=== PATIENT | male | born 1995 | race African-American/Black ===

== ENCOUNTER 2017-10-10 22:39 | Inpatient (IN) | payer SELFPAY ==
[2017-10-11] MEDS ORDERED: Ondansetron HCl/PF 4 MG/2 ML Vial IVP PRN (03:04)
[2017-10-11] MEDS ORDERED: Lorazepam 2 MG/ML VIAL SLOW IVP PRN (03:04)
[2017-10-11] MEDS ORDERED: Calcium Carbonate 500 MG ChewTAB PO PRN (03:04)
[2017-10-11] MEDS ORDERED: HYDROcodone/Acetaminophen 5/325 mg Tablet PO PRN (03:04)
[2017-10-11] MEDS ORDERED: hydrALAZINE 20 MG/ML VIAL SLOW IVP PRN (03:04)
[2017-10-11 03:46] LABS: Bilirubin Negative (Negative); Blood, Urine Large (Negative); Glucose, Urine (Dipstick) Negative (Negative); Ketone, Urine Negative (Negative); Nitrite Negative (Negative); Protein, Urine (Dipstick) 30 mg/dL (Neg-Trace); Urobilinogen 0.2 mg/dL (0.2-1.0)
[2017-10-11 03:49] LABS: Bacteria/HPF None Seen HPF (None Seen); Hyaline Casts/LPF 0-3 HYALINE CAST LPF (0-3 Hyaline); RBC/HPF GREATER THAN 50-TNTC HPF (0-3); Squamous Epithelial 0-3 HPF (0-3)
[2017-10-11] MEDS: Sodium Chloride 0.9% 1,000 ML IV SCH ×2 (03:54→16:37)
[2017-10-11] MEDS: Nicotine 21 MG PATCH TD SCH (03:56)
[2017-10-11 04:07] VITALS: BMI 23.9
[2017-10-11 04:07] LABS: Amphetamine Not Detected (NotDetected); Methadone Not Detected (NotDetected); Methamphetamine Not Detected (NotDetected)
[2017-10-11 06:15] LABS: #Eosinphils 0.1 thou/uL (0.0-0.7); #Lymphocytes 2.6 thou/uL (1.20-3.40); #Monocytes 0.7 thou/uL (0.11-0.59); %Basophils 0.4 % (0.0-1.0); %Eosinophils 1.3 % (0.0-10.0); %Monocytes 6.5 % (0.0-4.0); Hematocrit 42.6 % (42.0-52.0); Mean Platelet Volume 5.8 fL (7.4-10.4); Red Blood Cell (RBC) Count 4.63 mill/uL (4.00-5.20); White Blood Cell (WBC) Count 10.4 thou/uL (4.8-10.8)
[2017-10-11 06:20] LABS: ALT (SGPT) 12 U/L (8-55); AST (SGOT) 14 U/L (5-34); Alkaline Phosphatase 61 U/L (Less than 750); Anion Gap 13 mmol/L (10-20); BUN (Urea Nitrogen) 12 mg/dL (8.9-20.6); Bilirubin, Total 1.7 mg/dL (0.2-1.2); Calc. Creatinine Clearance 119 mL/min (70-130); Calcium 8.9 mg/dL (7.8-10.44); Carbon Dioxide 22 mmol/L (22-29); Chloride 108 mmol/L (98-107); Estimated GFR-MDRD Greater than 90; Globulin 2.8 g/dL (2.4-3.5); Magnesium 2.1 mg/dL (1.7-2.2); Protein, Total 6.6 g/dL (6.0-8.3)
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
[2017-10-11] MEDS: Acetaminophen 325 MG TAB PO PRN ×2 (08:48→14:55)
[2017-10-11] MEDS: Famotidine 20 MG TAB PO SCH ×2 (08:48→20:54)
[2017-10-11] MEDS ORDERED: FLU VACC QS2017-18 36 mo. & older 0.5 ML SYRINGE IM ONE (09:00)
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
[2017-10-11] MEDS ORDERED: cefTRIAXone\\ROCEPHIN 1 GM in Sodium Chloride 0.9% 100 ML IVPB SCH (15:00)
[2017-10-11] MEDS ORDERED: Gadobenate Dimeglumine 529 MG/1 ML (20ML VIAL) ONE (15:49)
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
[2017-10-11] MEDS: cefTRIAXone\\ROCEPHIN 1 GM, Syringe 0.4 ML in Sterile Water 9.6 ML SLOW IVP SCH (17:21)
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
[2017-10-12] MEDS: Nicotine 21 MG PATCH TD SCH (05:18)
[2017-10-12] MEDS: Acetaminophen 325 MG TAB PO PRN ×2 (05:20→12:40)
[2017-10-12] MEDS: Sodium Chloride 0.9% 1,000 ML IV SCH ×2 (06:36→22:19)
[2017-10-12] MEDS: Famotidine 20 MG TAB PO SCH ×2 (09:17→21:01)
--- NOTE | 2017-10-12 11:44 | PDOC.PN ---
- Subjective Encounter Start Date: 10/12/17 Encounter Start Time: 08:20 Pt seen for followup re: seizure. Denies chest pain, reports occipital headache. No nausea or vomiting. - Objective MAR Reviewed: Yes Vital Signs & Weight: Vital Signs (12 hours) Temp Pulse Resp BP Pulse Ox 10/12/17 08:00 97.9 F 67 18 121/59 L 99 10/12/17 07:37 97.9 F 67 18 10/12/17 03:45 97.4 F L 66 20 118/59 L 96 Weight Weight 144 lb 6.444 oz I&O: 10/11/17 10/12/17 10/13/17 06:59 06:59 06:59 Intake Total 150 2031 Output Total 0 460 Balance 150 1571 Result Diagrams: 10/11/17 05:26 10/11/17 05:26 EKG Reviewed by me: Yes (Tele: NSR) Phys Exam - Physical Examination Constitutional: NAD HEENT: PERRLA, moist MMs, sclera anicteric, oral pharynx no lesions Neck: no nodes, no JVD, supple, full ROM Respiratory: no wheezing, no rales, no rhonchi, clear to auscultation bilateral Cardiovascular: RRR, no significant murmur, no rub Gastrointestinal: soft, non-tender, no distention, positive bowel sounds Musculoskeletal: pulses present Neurological: moves all 4 limbs Psychiatric: normal affect, A&O x 3 Skin: no rash, normal turgor, cap refill <2 seconds Dx/Plan (1) Seizure Code(s): R56.9 - UNSPECIFIED CONVULSIONS Status: Acute (2) Syncope Code(s): R55 - SYNCOPE AND COLLAPSE Status: Acute (3) UTI (urinary tract infection) Status: Acute (4) HTN (hypertension) Code(s): I10 - ESSENTIAL (PRIMARY) HYPERTENSION Status: Chronic - Plan out of bed/ambulate, DVT proph w/SCDs * . Appreciate neurology consult. Await cardiology consult. Echo report noted. Continue keppra. Ambulate patient. Monitor vital signs, titrate antihypertensives as needed. Review of Systems - Review of Systems Constitutional: negative: Fever, Chills, Sweats, Weakness, Malaise Respiratory: negative: Cough, Dry, Shortness of Breath, Hemoptysis, SOB with Excertion, Pleuritic Pain, Sputum, Wheezing Cardiovascular: negative: Chest Pain, Palpitations, Orthopnea, Paroxysmal Noc. Dyspnea, Edema, Light Headedness Gastrointestinal: negative: Nausea, Vomiting, Abdominal Pain, Diarrhea, Constipation, Melena, Hematochezia Neurological: negative: Weakness, Numbness, Incoordination, Change in Speech, Confusion, Seizures - Medications/Allergies Allergies/Adverse Reactions: Allergies Allergy/AdvReac Type Severity Reaction Status Date / Time No Known Drug Allergies Allergy Verified 10/11/17 03:11 Medications: Current Medications Acetaminophen (Tylenol) 650 mg PO Q4H PRN PRN Reason: Headache/Fever or Pain Last Admin: 10/12/17 05:20 Dose: 650 mg Hydrocodone Bitart/Acetaminophen ([place] 5/325) 1 tab PO Q4H PRN PRN Reason: Moderate Pain (4-6) Calcium Carbonate (Tums) 1,000 mg PO Q4H PRN PRN Reason: Heartburn or Indigestion Famotidine (Pepcid) 20 mg PO BID [facility] Last Admin: 10/12/17 09:17 Dose: 20 mg Hydralazine HCl (Apresoline) 10 mg SLOW IVP Q4H PRN PRN Reason: Systolic BP > 180 Sodium Chloride (Normal Saline 0.9%) 1,000 mls @ 75 mls/hr IV .[id number] [facility] Stop: 10/13/17 03:05 Last Admin: 10/12/17 06:36 Dose: 1,000 mls Levetiracetam 500 mg/ Device 100 mls @ 200 mls/hr IVPB BID [facility] Last Admin: 10/12/17 09:17 Dose: 100 mls Ceftriaxone Sodium 1 gm/ (Syringe 0.4 ml/ Sterile Water) 10 mls @ 120 mls/hr SLOW IVP 1600 [facility] Last Admin: 10/11/17 17:21 Dose: 10 mls Lorazepam (Ativan) 2 mg SLOW IVP Q15MIN PRN PRN Reason: Seizures Nicotine (Nicoderm Patch) 21 mg TD Q24HR [facility] Last Admin: 10/12/17 05:18 Dose: 21 mg Ondansetron HCl (Zofran) 4 mg IVP Q6H PRN PRN Reason: Nausea/Vomiting Last Admin: 10/11/17 10:47 Dose: 4 mg
[2017-10-12] MEDS ORDERED: levETIRAcetam In NaCl (Iso-Os) 2,000 MG in Premix Bag 1 BAG IVPB SCH ×2 (13:30)
[2017-10-12] MEDS ORDERED: levETIRAcetam 2,000 MG in Sodium Chloride 0.9% 100 ML IVPB SCH (14:00)
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
[2017-10-12] MEDS: cefTRIAXone\\ROCEPHIN 1 GM, Syringe 0.4 ML in Sterile Water 9.6 ML SLOW IVP SCH (17:55)
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
[2017-10-13] MEDS: Sodium Chloride 0.9% 1,000 ML IV SCH (00:05)
[2017-10-13] MEDS: Nicotine 21 MG PATCH TD SCH (07:22)
[2017-10-13] MEDS: Famotidine 20 MG TAB PO SCH ×2 (09:38→20:39)
--- NOTE | 2017-10-13 10:57 | PDOC.CTH ---
<Oma Hameed - Last Filed: 10/13/17 10:56> Cardiology Progress Note - Subjective The pt was seen and examined. No overnight events. No cardiac complaints. No seizure episode since last night. Per pt and family, the pt will have EEG today or tomorrow - Objective Vital Signs Temp Pulse Resp BP Pulse Ox 10/13/17 07:00 97.9 F 68 16 117/47 L 98 10/13/17 04:00 97.9 F 59 L 16 112/74 99 10/13/17 00:03 98.2 F 54 L 16 104/43 L 99 Weight 144 lb 6.444 oz 10/12/17 10/13/17 10/14/17 06:59 06:59 06:59 Intake Total 2031 2343 100 Output Total 460 2400 Balance 1571 -57 100 - Physical Examination General/Neuro: alert & oriented x3 Neck: no JVD present Lungs: CTA Heart: RRR Abdomen: soft Extremities: other: (No edema) - Telemetry Telemetry Rhythm: SR - Labs Result Diagrams: 10/11/17 05:26 10/11/17 05:26 - Assessment/Plan 1. Seizure - stable with medication; managed by neurologist 2. Cardiac Murmur - Echo on 10/12/17 showed EF of 55-60%, mild MO, and trace TR 3. HTN - stable; cont. monitor 4. UTI - on IV antibiotic; managed by PCP 5. Smoker -on Nicotine patch; smoking cessation education given MAR reviewed Review of Systems - Review of Systems Constitutional: reports: no symptoms reported EENTM: reports: no symptoms reported Respiratory: reports: no symptoms reported Cardiac (ROS): reports: no symptoms reported ABD/GI: reports: no symptoms reported : reports: no symptoms reported Musculoskeletal: reports: no symptoms reported Skin: reports: no symptoms reported <Roderick Valenzuela - Last Filed: 10/13/17 15:52> Cardiology Progress Note - Objective Vital Signs Temp Pulse Resp BP Pulse Ox 10/13/17 15:00 97.6 F 83 18 108/56 L 98 10/13/17 11:05 97.8 F 72 18 107/54 L 10/13/17 08:00 97.8 F 72 18 10/13/17 07:00 97.9 F 68 16 117/47 L 98 10/13/17 04:00 97.9 F 59 L 16 112/74 99 Weight 144 lb 6.444 oz 10/12/17 10/13/17 10/14/17 06:59 06:59 06:59 Intake Total 2031 2343 945 Output Total 460 2400 900 Balance 1571 -57 45 - Labs Result Diagrams: 10/11/17 05:26 10/11/17 05:26 - Assessment/Plan Pt. seen and eval. Still appears to be having seizures. His cardiac status is normal. No abnormalities to account for his symptoms. I will sign off. If any changes please consult us again.
--- NOTE | 2017-10-13 11:40 | PDOC.PN ---
- Subjective Encounter Start Date: 10/13/17 Encounter Start Time: 10:35 Subjective: no further seizures from yesterday afternoon -: he apparently had some staring moments yesterday afternoon -: is awake, no compliants, follows verbal stimuli - Objective MAR Reviewed: Yes Vital Signs & Weight: Vital Signs (12 hours) Temp Pulse Resp BP Pulse Ox 10/13/17 11:05 97.8 F 72 18 107/54 L 10/13/17 07:00 97.9 F 68 16 117/47 L 98 10/13/17 04:00 97.9 F 59 L 16 112/74 99 10/13/17 00:03 98.2 F 54 L 16 104/43 L 99 Weight Weight 144 lb 6.444 oz I&O: 10/12/17 10/13/17 10/14/17 06:59 06:59 06:59 Intake Total 2031 2343 100 Output Total 460 2400 Balance 1571 -57 100 Result Diagrams: 10/11/17 05:26 10/11/17 05:26 Additional Labs: Accuchecks 10/12/17 13:02 POC Glucose 79 Phys Exam - Physical Examination HEENT: PERRLA, moist MMs Neck: no JVD, supple Respiratory: no wheezing, no rales Cardiovascular: RRR, no significant murmur Gastrointestinal: soft, non-tender, no distention, positive bowel sounds Musculoskeletal: no edema, pulses present Neurological: non-focal, moves all 4 limbs Psychiatric: A&O x 3 Dx/Plan (1) Seizure Code(s): R56.9 - UNSPECIFIED CONVULSIONS Status: Acute Comment: ?absence seizures (2) UTI (urinary tract infection) Status: Acute Qualifiers: Urinary tract infection type: acute cystitis Hematuria presence: without hematuria Qualified Code(s): N30.00 - Acute cystitis without hematuria - Plan on keppra -: cipro for uti, not sure if they took urine for cultures -: awaiting eeg to be done -: echo shows no evidence of cardiac anatomical abnormalities -: will need coupon for keppra on discharge * . d/w mom and his fiance at bedside. To amb in hallway with family. Review of Systems - Medications/Allergies Allergies/Adverse Reactions: Allergies Allergy/AdvReac Type Severity Reaction Status Date / Time No Known Drug Allergies Allergy Verified 10/11/17 03:11 Medications: Current Medications Acetaminophen (Tylenol) 650 mg PO Q4H PRN PRN Reason: Headache/Fever or Pain Last Admin: 10/12/17 12:40 Dose: 650 mg Calcium Carbonate (Tums) 1,000 mg PO Q4H PRN PRN Reason: Heartburn or Indigestion Ciprofloxacin (Cipro) 500 mg PO 0600,2000 [facility] Famotidine (Pepcid) 20 mg PO BID [facility] Last Admin: 10/13/17 09:38 Dose: 20 mg Hydralazine HCl (Apresoline) 10 mg SLOW IVP Q4H PRN PRN Reason: Systolic BP > 180 Levetiracetam (Keppra) 500 mg PO BID [facility] Lorazepam (Ativan) 2 mg SLOW IVP Q15MIN PRN PRN Reason: Seizures Last Admin: 10/12/17 14:00 Dose: 2 mg Nicotine (Nicoderm Patch) 21 mg TD Q24HR [facility] Last Admin: 10/13/17 07:22 Dose: 21 mg Ondansetron HCl (Zofran) 4 mg IVP Q6H PRN PRN Reason: Nausea/Vomiting Last Admin: 10/11/17 10:47 Dose: 4 mg
[2017-10-13] MEDS ORDERED: Ciprofloxacin 500 MG TAB PO SCH (11:45)
[2017-10-13] MEDS: Acetaminophen 325 MG TAB PO PRN ×2 (15:51→20:38)
[2017-10-13] MEDS: levETIRAcetam 500 MG TAB PO SCH (20:39)
[2017-10-13] MEDS: Ciprofloxacin 500 MG TAB PO SCH (20:39)
[2017-10-14] MEDS: Nicotine 21 MG PATCH TD SCH (05:19)
[2017-10-14] MEDS ORDERED: Nicotine 21 MG PATCH TD SCH (06:00)
[2017-10-14] MEDS: Ciprofloxacin 500 MG TAB PO SCH (06:03)
[2017-10-14] MEDS: Acetaminophen 325 MG TAB PO PRN (09:10)
[2017-10-14] MEDS: Famotidine 20 MG TAB PO SCH (09:10)
[2017-10-14] MEDS: levETIRAcetam 500 MG TAB PO SCH (09:10)
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
[2017-10-14 12:25] VITALS: BP 131/74; TEMP 97.9
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
--- NOTE | 2017-10-15 07:39 | EEG ---
Referring Physician: DR. OLMSTEAD EEG # [id number] TEST TYPE: ROUTINE PORTABLE INPATIENT REPORT: AN EEG USING THE INTERNATIONAL TEN-TWENTY SYSTEM OF ELECTRODE PLACEMENT WAS PERFORMED. The waking background is a 9 hertz alpha frequency. The patient remained awake throughout the study. Hyperventilation and Photic Stimulation were unremarkable. No epileptiform features were seen. IMPRESSION: THIS IS A NORMAL AWAKE EEG. Passenger Relations Representative: RUSTY Director Pharmacy Services: [email or web address] SCHNEIDER
== END 2017-10-14 15:06 | disposition home or self-care (01) | DRG 880 ==
LOC: ERS 22:39 → INTOOBSV 10-11 → 2NO 10-11 → OBSVTOIN 10-11 → IMCU/EMU 10-12 14:56
PROVIDERS: ADMIT Internal Medicine; ATTEND Internal Medicine
PROC: 4A00X4Z Measurement of Central Nervous Electrical Activity, External Approach (ICD-10-PCS; principal; 2017-10-14)
DX: F44.5 Conversion disorder with seizures or convulsions (principal); I10 Essential (primary) hypertension; N39.0 Urinary tract infection, site not specified; F17.220 Nicotine dependence, chewing tobacco, uncomplicated
CPT/HCPCS: 36415; 36416; 70553; 80053; 80306; 81001; 83735; 84146; 84443; 85025; 93005; 93010; 93306; 95816; 95819; 99406; A4216; A9579; J0696; J1953; J2060; J2405; J7050

== ENCOUNTER 2023-03-06 23:56 | Emergency (ER) | payer SELFPAY ==
[2023-03-07] MEDS ORDERED: Acetaminophen 500 MG TAB ONE (00:50)
[2023-03-07] MEDS ORDERED: Ketorolac Tromethamine 30 MG/ML VIAL ONE (00:50)
[2023-03-07 00:53] LABS: #Eosinphils 0.1 thou/uL (0.0-0.7); #Lymphocytes 2.8 thou/uL (1.20-3.40); #Monocytes 1.2 thou/uL (0.11-0.59); #Neutrophils 6.2 thou/uL (1.40-6.50); %Basophils 0.3 % (0.0-1.0); %Lymphocytes 26.7 % (21.0-51.0); %Monocytes 11.3 % (0.0-10.0); %Neutrophils 60.6 % (42.0-75.0); Mean Corpuscular HGB CONC 36.1 g/dL (32.0-36.0); Mean Corpuscular Hemoglobin 32.8 pg (27.0-31.0); Mean Corpuscular Volume 90.8 fl (78.0-98.0); Platelet Count 267 10x3/uL (130-400); RBC Distribution Width 11.9 % (11.5-14.5); Red Blood Cell (RBC) Count 4.56 mill/uL (4.70-6.10); White Blood Cell (WBC) Count 10.3 10x3/uL (4.8-10.8)
[2023-03-07 01:16] LABS: ALT (SGPT) 15 U/L (8-55); AST (SGOT) 16 U/L (5-34); Albumin 3.9 g/dL (3.5-5.0); Alkaline Phosphatase 60 U/L (40-110); Anion Gap 11 mmol/L (10-20); BUN (Urea Nitrogen) 18 mg/dL (8.9-20.6); Bilirubin, Total 1.1 mg/dL (0.2-1.2); Calc. Creatinine Clearance 0 mL/min (70-130); Carbon Dioxide 23 mmol/L (22-29); Chloride 109 mmol/L (98-107); Estimated GFR 102; Globulin 2.8 g/dL (2.4-3.5); Glucose 105 mg/dL (70-105); Potassium 3.6 mmol/L (3.5-5.1); Protein, Total 6.7 g/dL (6.0-8.3); Sodium 139 mmol/L (136-145)
[2023-03-07] MEDS ORDERED: Dexamethasone 4 MG TAB ONE ×2 (02:25→02:27)
== END 2023-03-07 02:33 | disposition home or self-care (01) ==
LOC: ERS 23:56
DX: L03.211 Cellulitis of face (principal); K04.7 Periapical abscess without sinus; J45.909 Unspecified asthma, uncomplicated; F17.220 Nicotine dependence, chewing tobacco, uncomplicated
CPT/HCPCS: 36415; 70487; 80053; 85025; 86140; 96374; J1885; J8540

== ENCOUNTER 2023-10-18 19:28 | Emergency (ER) | payer SELFPAY ==
[2023-10-18] MEDS ORDERED: Amoxicillin/Potassium Clav 875 MG TAB ONE (20:39)
[2023-10-18] MEDS ORDERED: Ketorolac Tromethamine 30 MG/ML VIAL ONE (20:40)
[2023-10-18] MEDS ORDERED: HYDROcodone/Acetaminophen 5/325 mg Tablet ONE (20:40)
== END 2023-10-18 21:09 | disposition home or self-care (01) ==
LOC: ERS 19:28
DX: K04.7 Periapical abscess without sinus (principal); F17.220 Nicotine dependence, chewing tobacco, uncomplicated
CPT/HCPCS: 96372; 99282; J1885